=== PATIENT | female | born 1950 | race Caucasian/White ===

== ENCOUNTER 2016-04-03 20:32 | Emergency (ER) | payer OTHER ==
--- NOTE | 2016-04-03 20:39 | CPEKG ---
Heart Rate: 78 RR Interval: 769 P-R Interval: 184 QRSD Interval: 82 QT Interval: 404 QTC Interval: 461 P [place]: -3 QRS [place]: 54 T Wave [place]: 65 EKG Severity - NORMAL ECG - EKG Impression: SINUS RHYTHM Electronically Signed By: Adenike Huizar 03-Apr-2016 22:04:57
[2016-04-03] MEDS ORDERED: NS 1,000 ML IV ONE ×2 (20:47→20:56)
--- NOTE | 2016-04-03 20:47 | EDPHY ---
H & P Time Seen by Provider: 04/03/16 20:46 HPI/ROS: CHIEF COMPLAINT: Syncopal episode. HISTORY OF PRESENT ILLNESS: The patient is a 65-year-old female who presents after a syncopal episode earlier today. She reports that after lunch she developed abdominal pain and bloating with nausea. She still went to work where she felt flushed and lightheaded and then had a syncopal episode. She did not hurt herself. She has a history of similar symptoms from working too much and getting dehydrated. She has fainted six times over the last 16 years. Prior workup was unremarkable. She denies vomiting, diarrhea, fever, or other complaints. REVIEW OF SYSTEMS: A complete 10-point review of systems was performed and is negative except for those items mentioned in the HPI. Past Medical/Surgical History: Asthma, hypothyroidism. Social History: Nonsmoker, from [place]. Smoking Status: Never smoked Physical Exam: General Appearance: Alert, well-appearing Eyes: Pupils equal and round, no conjunctival pallor or injection ENT, Mouth: Mucous membranes moist Neck: Normal inspection Respiratory: Lungs are clear to auscultation Cardiovascular: Regular rate and rhythm Gastrointestinal: Abdomen is soft and non-tender Neurological: A&O, nonfocal exam Skin: Warm and dry, no rash Extremities: Nontender, no pedal edema Psychiatric: Mood and affect normal Constitutional: Initial Vital Signs Temperature (C) 36.6 C 04/03/16 20:32 Heart Rate 76 04/03/16 20:32 Respiratory Rate 22 H 04/03/16 20:32 Blood Pressure 111/62 04/03/16 20:32 O2 Sat (%) 98 04/03/16 20:32 O2 Delivery Mode Room Air Allergies/Adverse Reactions: No Known Allergies Allergy (Verified 03/14/14 20:23) Home Medications: Medication Instructions Recorded Cholecalciferol (Vitamin D3) 5,000 unit PO DAILY 03/14/14 [Vitamin D3] Herbals/Supplements -Info Only 1 ea PO DAILY 03/14/14 Levothyroxine [Synthroid] 112 mcg PO DAILY06 03/14/14 Ondansetron Odt [Zofran Odt 4 mg 4 mg PO Q4 #20 tab 03/14/14 (RX)] Medical Decision Making - Diagnostics EKG Interpretation: EKG interpreted by me reveals normal sinus rhythm, normal axis, normal intervals , ST and T segments normal. Interpretation: normal EKG ED Course/Re-evaluation: This patient presents after a syncopal episode, most likely vasovagal in etiology. An IV was established. 2L IV Saline administered for hydration. EKG obtained; no dysrhythmia or ischemia. Patient felt better after IV fluids and Zofran. Able to tolerate oral fluids well. Safe and stable for discharge home. Differential Diagnosis: Differential diagnosis includes though is not limited to cardiac dysrhythmia, CVA, TIA, GI bleed, sepsis, hypoglycemia. - Data Points Laboratory Results: Laboratory Results 04/03/16 20:25 04/03/16 20:25 Medications Given: Discontinued Medications Sodium Chloride (Ns) 1,000 mls @ 0 mls/hr IV ONCE ONE PRN Reason: Wide Open Stop: 04/03/16 20:48 Last Admin: 04/03/16 20:51 Dose: 1,000 mls Sodium Chloride (Ns) 1,000 mls @ 0 mls/hr IV ONCE ONE PRN Reason: Wide Open Stop: 04/03/16 20:57 Last Admin: 04/03/16 21:45 Dose: Not Given Ondansetron HCl (Zofran Odt 4 Mg Prepack#2) 1 btl TAKEHOME EDNOW ONE Stop: 04/03/16 20:58 Last Admin: 04/03/16 21:09 Dose: 1 btl Ondansetron HCl (Zofran) 4 mg IVP EDNOW ONE Stop: 04/03/16 21:05 Last Admin: 04/03/16 21:09 Dose: 4 mg Departure - Departure Disposition: Home, Routine, Self-Care Clinical Impression: Syncope Qualifiers: Syncope type: unspecified Qualifier Code: (R55) Syncope and collapse Nausea and vomiting Qualifiers: Vomiting type: unspecified Vomiting Intractability: non-intractable Qualifier Code: (R11.2) Nausea with vomiting, unspecified Condition: Good Instructions: Syncope (ED), Acute Nausea and Vomiting (ED), Ondansetron (By mouth) Additional Instructions: Drink plenty of fluids and be sure to get rest. Follow up with your primary care provider this week for reevaluation. You have been given the telephone number of a primary care provider if you need one. Return to the emergency department if you experience serious worsening of condition. Referrals: Pacheco Reese, [Doctor of Osteopathy] - As per Instructions (On-call Primary care provider. ) Report Scribed for: Adenike Huizar Report Scribed by: Michele Christianson Date of Report: 04/03/16 Time of Report: 20:47 Physician Review and Approval Statement: 04/03/16 20:47 Portions of this note were transcribed by a medical care administrator. I personally performed a history, physical exam, medical decision making, and confirmed accuracy of information the transcribed note.
[2016-04-03 20:51] VITALS: TEMP 97.9
[2016-04-03 20:54] LABS: % IMMATURE GRANULYOCYTES 0.3 % (0.0-1.1); ABSOLUTE IMMATURE GRANULOCYTES 0.04 10^3/uL (0.00-0.10); ADD DIFF? NO; ADD MORPH? NO; ADD SCAN? NO; ATYPICAL LYMPHOCYTE FLAG 0 (0-99); FRAGMENT RBC FLAG 0 (0-99); HEMATOCRIT 38.2 % (38.0-47.0); HEMOGLOBIN 13.2 g/dL (12.6-16.3); LEFT SHIFT FLG 0 (0-99); LIPEMIA HEMOLYSIS FLAG 90 (0-99); MEAN CELL HEMOGLOBIN 30.6 pg (27.9-34.1); MEAN CELL HEMOGLOBIN CONCENTR. 34.6 g/dL (32.4-36.7); MEAN CELL VOLUME 88.4 fL (81.5-99.8); MEAN PLATELET VOLUME 11.2 fL (8.7-11.7); PLATELET CLUMPS FLAG 0 (0-99); PLATELET COUNT 311 10^3/uL (150-400); RED BLOOD CELL COUNT 4.32 10^6/uL (4.18-5.33); RED CELL DISTRIBUTION WIDTH 13.3 % (11.5-15.2)
[2016-04-03 20:57] LABS: ANION GAP 10 mEq/L (8-16); CALCIUM 9.6 mg/dL (8.5-10.4); CARBON DIOXIDE 27 mEq/l (22-31); CHLORIDE 101 mEq/L (97-110); CREATININE 0.8 mg/dL (0.6-1.0); GLOMERULAR FILTRATION RATE > 60; GLUCOSE 130 mg/dL (70-100); POTASSIUM 3.9 mEq/L (3.5-5.2); SODIUM 138 mEq/L (134-144)
[2016-04-03] MEDS ORDERED: ONDANSETRON 4MG PREPACK#2 BTL TAKEHOME ONE (20:57)
[2016-04-03] MEDS ORDERED: ONDANSETRON 4 MG/2 ML VIAL IVP ONE (21:04)
[2016-04-03] MEDS ORDERED: ONDANSETRON 4 MG/2 ML VIAL ONE (21:05)
[2016-04-03 21:54] VITALS: BP 112/62; PULSE 75; RESP 16; O2SAT 97
== END 2016-04-03 21:52 | disposition home or self-care (01) ==
DX: R55 Syncope and collapse (principal); R11.2 Nausea with vomiting, unspecified; J45.909 Unspecified asthma, uncomplicated
CPT/HCPCS: 96374; J2405

== ENCOUNTER 2016-05-14 06:28 | Emergency (ER) | payer OTHER ==
[2016-05-14 06:36] VITALS: RESP 16; TEMP 98.1; O2SAT 96
--- NOTE | 2016-05-14 07:10 | EDPHY ---
H & P Stated Complaint: work comp neck/back check up poss injury, tried to prevent Pt fall Time Seen by Provider: 05/14/16 07:05 HPI/ROS: CHIEF COMPLAINT: Neck/upper back pain. HISTORY OF PRESENT ILLNESS: The patient is a 65-year-old female who presents with upper back and neck pain that began at 0430 this morning. 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 She felt immediate burning pain across the back of her neck. The pain does not radiate. She denies weakness , numbness, paresthesias. She denies recent sickness. No history of neck or back surgeries. No fever, chills, chest pain, shortness of breath, palpitations , vomiting, diarrhea, urinary complaints, headache, lightheadedness. REVIEW OF SYSTEMS: Aside from elements discussed in the HPI, a comprehensive 10-point review of systems was reviewed and is negative. PAST MEDICAL HISTORY: Asthma, hypothyroidism, ovarian cyst. SOCIAL HISTORY: Works on [employer], nonsmoker, social alcohol use. VITAL SIGNS: Reviewed by me GENERAL: Well-developed, well-nourished, in no respiratory distress. HEENT: Atraumatic. Benign exam. Neck: supple with no adenopathy. No midline tenderness to palpation LUNGS: Clear to auscultation bilaterally, no wheezes, rhonchi or rales. CARDIAC: Regular rate and rhythm, no rubs, murmurs or gallops. ABDOMEN: Soft, nontender, nondistended, bowel sounds normal. BACK: No CVA tenderness. No midline lumbar spine or thoracic spine tenderness. Tightness in paraspinous muscles and across trapezius. EXTREMITIES: No trauma. No edema. Range of motion is normal throughout. NEURO: Alert and oriented, grossly nonfocal. Brisk reflexes. Normal motor and sensory exam of upper extremities. SKIN: Warm and dry, no rash. PSYCHIATRIC: Normal mentation, no agitation. Portions of this note were transcribed by a center medical director. I personally performed a history, physical exam, medical decision making, and confirmed accuracy of information the transcribed note. Source: Patient Exam Limitations: No limitations - Personal History Current Tetanus/Diphtheria Vaccine: Yes Tetanus Vaccine Date: 2014 - Medical/Surgical History Hx Asthma: Yes Hx Chronic Respiratory Disease: No Hx Diabetes: No Hx Cardiac Disease: No Hx Renal Disease: No Hx Cirrhosis: No Hx Alcoholism: No Hx HIV/AIDS: No Hx Splenectomy or Spleen Trauma: No Other PMH: PMHx: Asthma, hypothyroidism, ovarian cyst. PSHx: denies - Social History Smoking Status: Never smoked Constitutional: Initial Vital Signs Temperature (C) 36.7 C 05/14/16 06:32 Heart Rate 93 05/14/16 06:32 Respiratory Rate 16 05/14/16 06:32 Blood Pressure 139/72 H 05/14/16 06:32 O2 Sat (%) 96 05/14/16 06:32 O2 Delivery Mode Room Air Allergies/Adverse Reactions: No Known Allergies Allergy (Verified 03/14/14 20:23) Home Medications: Medication Instructions Recorded Cholecalciferol (Vitamin D3) 5,000 unit PO DAILY 03/14/14 [Vitamin D3] Herbals/Supplements -Info Only 1 ea PO DAILY 03/14/14 Levothyroxine [Synthroid] 112 mcg PO DAILY06 03/14/14 Ondansetron Odt [Zofran Odt 4 mg 4 mg PO Q4 #20 tab 03/14/14 (RX)] Cyclobenzaprine [Flexeril 10 MG 10 mg PO TID PRN #20 tab 05/14/16 (RX)] Hydrocodone/APAP 5/325 [[place] 1 tab PO Q6H PRN #10 tab 05/14/16 5/325 (RX)] Medical Decision Making ED Course/Re-evaluation: suspect muscular strain. No evidence of disc herniation, fracture, or cord injury. No radicular symptoms. Will dc with NSAID, flexeril, follow up and norco if needed for severe pain. Differential Diagnosis: Diff dx considered included disc hernation, fracture, spinal injury, muscle strain, muscle sprain, infection. - Data Points Medications Given: Discontinued Medications Hydrocodone Bitart/Acetaminophen ([place] 5/325mg Prepack#6) 1 btl TAKEHOME EDNOW ONE Stop: 05/14/16 07:34 Last Admin: 05/14/16 07:36 Dose: 1 btl Cyclobenzaprine HCl (Flexeril 10 Mg Prepack#3) 1 btl TAKEHOME EDNOW ONE Stop: 05/14/16 07:34 Last Admin: 05/14/16 07:36 Dose: 1 btl Departure - Departure Disposition: Home, Routine, Self-Care Clinical Impression: Cervical strain Qualifiers: Encounter type: initial encounter Qualified Code(s): S16.1XXA - Strain of muscle, fascia and tendon at neck level, initial encounter Condition: Good Instructions: Hydrocodone/Acetaminophen (By mouth), Cyclobenzaprine (By mouth) , Cervical Strain (ED) Additional Instructions: Apply ice for 20-30 minutes every 2-3 hours for the next 48 hours. I recommend Ibuprofen (Motrin,Advil) or Naproxen Sodium (Aleve) for pain and anti-inflammatory effects. You may take either one, but do not take both. Your dose is: Ibuprofen 600mg every 6-8 hours with food. OR Naproxen Sodium (Aleve) 220mg every 12 hours. Take half a Vicodin for pain not controlled by Ibuprofen or Aleve. You can also take a half Flexeril for muscle spasms. Follow up with Workman's [employer] when you return to [place]. The telephone number for [facility] is [phone]. Return to the emergency department for shooting pains in your arms, weakness, numbness, paresthesias, or any serious worsening of condition. Referrals: [facility],. [Clinic] - As per Instructions Prescriptions: Cyclobenzaprine [Flexeril 10 MG (RX)] 10 mg PO TID PRN #20 tab PRN Reason: Muscle Spasms Hydrocodone/APAP 5/325 [[place] 5/325 (RX)] 1 tab PO Q6H PRN #10 tab PRN Reason: Pain Report Scribed for: Jaz Minaya Report Scribed by: Michele Christianson Date of Report: 05/14/16 Time of Report: 07:10
[2016-05-14] MEDS ORDERED: CYCLOBENZAPRINE 10MG PREPACK#3 BTL TAKEHOME ONE (07:33)
[2016-05-14] MEDS ORDERED: HYDROCOD/APAP 5/325 PREPACK#6 BTL TAKEHOME ONE (07:33)
[2016-05-14 07:50] VITALS: BP 138/68; PULSE 67
== END 2016-05-14 07:50 | disposition home or self-care (01) ==
DX: S16.1XXA Strain of muscle, fascia and tendon at neck level, initial encounter (principal); J45.909 Unspecified asthma, uncomplicated; W19.XXXA Unspecified fall, initial encounter; Y92.69 Other specified industrial and construction area as the place of occurrence of the external cause; Y99.8 Other external cause status; Y93.89 Activity, other specified

== ENCOUNTER → 2016-10-09 | Outpatient (CLI) | payer OTHER | LOC: FIMAGING 14:33 | PROVIDERS: ATTEND Obstetrics & Gynecology | DX: Z12.31 Encounter for screening mammogram for malignant neoplasm of breast (principal) | CPT/HCPCS: G0202 ==

== ENCOUNTER → 2017-10-10 | Outpatient (CLI) | payer OTHER | DX: Z12.31 Encounter for screening mammogram for malignant neoplasm of breast (principal); Z98.82 Breast implant status ==

== ENCOUNTER → 2017-12-26 | Outpatient (CLI) | payer OTHER | LOC: FIMAGING 13:59 | PROVIDERS: ATTEND Family Medicine | DX: Z13.820 Encounter for screening for osteoporosis (principal); M81.0 Age-related osteoporosis without current pathological fracture; E03.9 Hypothyroidism, unspecified; Z78.0 Asymptomatic menopausal state ==

== ENCOUNTER → 2018-01-09 | Outpatient (CLI) | payer OTHER | LOC: FIMAGING 09:01 | PROVIDERS: ATTEND Family Medicine | DX: M25.812 Other specified joint disorders, left shoulder (principal) ==